=== PATIENT | female | born 2005 | race Caucasian/White ===

== ENCOUNTER 2024-09-22 21:59 | Emergency (ER) | payer OTHER ==
[~2024-09-22] VITALS: Ht 170.2 cm; Wt 96.3 kg
[2024-09-22] MEDS ORDERED: ADVIL LIQUI-GE200 MG PO (22:45)
[2024-09-22] MEDS ORDERED: TYLENOL325 MG PO (22:45)
[2024-09-22] MEDS ORDERED: CYCLOBENZAPRINE10 MG PO (23:35)
[2024-09-22] MEDS ORDERED: HYDROCODON-ACE1 EA10 PO (23:35)
[2024-09-22] MEDS ORDERED: CYCLOBENZAPRINE HCL 10 MG HOME.PACK PO ONE (23:45)
[2024-09-22] MEDS ORDERED: HYDROCODONE BIT/ACETAMINOPHEN 5/325 MG 1 TAB HOME.PACK PO PRN (23:45)
[2024-09-22 23:54] VITALS: BP 150/86
== END 2024-09-22 23:55 | disposition home or self-care (01) ==
LOC: ED 21:59
DX: M62.830 Muscle spasm of back (principal); Z79.899 Other long term (current) drug therapy
CPT/HCPCS: 70450; 72125; 99283-25; A9270